=== PATIENT | male | born 1955 | race Caucasian/White ===

== ENCOUNTER → 2019-08-07 | Outpatient (RCR) | payer OTHER | LOC: PT 07:53 | PROVIDERS: ATTEND Orthopaedic Surgery | DX: M75.31 Calcific tendinitis of right shoulder (principal); M25.511 Pain in right shoulder; M62.81 Muscle weakness (generalized) ==

== ENCOUNTER 2019-09-02 13:52 | Outpatient (RCR) | payer OTHER | END 2019-09-06 | LOC: PT 13:52 | PROVIDERS: ATTEND Orthopaedic Surgery | DX: M75.31 Calcific tendinitis of right shoulder (principal); M25.511 Pain in right shoulder; M62.81 Muscle weakness (generalized) ==